=== PATIENT | male | born 1990 | race African-American/Black ===

== ENCOUNTER 2022-10-26 17:40 | Emergency (ER) | payer OTHER ==
[~2022-10-26] VITALS: Ht 175.3 cm; Wt 102.1 kg
[2022-10-26 18:00] VITALS: BP_SYST 155; PULSE 95; RESP 20; TEMP 98.3; O2SAT 97
--- NOTE | 2022-10-26 19:10 | NUR ---
Pt brought by self, A&Ox4, pt presents to ER with pain/swelling on R knee, denies trauma, skin pink and warm, cap refill <3.
--- NOTE | 2022-10-26 19:15 | NUR ---
Report given to Doris GIBBONS
--- NOTE | 2022-10-26 19:30 | NUR ---
ER at bedside examining patient.
[2022-10-26 20:27] LABS: BASOPHILS # (AUTO) 0.1 K/uL (0.0-0.2); BASOPHILS % (AUTO) 0.6 % (0.0-2.0); EOSINOPHILS # (AUTO) 0.1 K/uL (0.0-0.4); EOSINOPHILS % (AUTO) 1.2 % (0.0-4.0); HEMATOCRIT 38.1 % (36-54); HEMOGLOBIN 12.4 g/dL (14.0-18.0); LYMPHOCYTES # (AUTO) 1.3 K/uL (1.0-5.5); LYMPHOCYTES % (AUTO) 11.9 % (20.5-51.5); MEAN CORPUSCULAR HEMOGLOBIN 27 pg (27-31); MEAN CORPUSCULAR HGB CONC 32 % (32-36); MEAN CORPUSCULAR VOLUME 84 fL (79.0-98.0); MONOCYTES # (AUTO) 1.3 K/uL (0.0-1.0); MONOCYTES % (AUTO) 12.5 % (1.7-9.3); NEUTROPHILS # (AUTO) 7.8 K/uL (1.8-7.7); NEUTROPHILS % (AUTO) 73.8 % (40.0-70.0); PLATELET COUNT (AUTO) 370 K/uL (130-430); RED BLOOD CELL COUNT(AUTO) 4.55 MIL/uL (4.2-6.2); RED CELL DISTRIBUTION WIDTH 13.6 % (9.0-15.0); WHITE BLOOD COUNT (AUTO) 10.6 K/uL (4.8-10.8)
[2022-10-26 20:39] LABS: ERYTHROCYTE SEDIMENTATION RATE 83 MM/HR (0-15)
[2022-10-26 20:41] LABS: ALBUMIN 3.5 g/dL (3.4-4.8); CALCIUM 9.3 mg/dL (8.4-11.0); CREATININE 1.14 mg/dL (0.55-1.30); TOTAL BILIRUBIN 1.3 mg/dL (0.0-1.0)
[2022-10-26] MEDS ORDERED: KETOROLAC TROMETHAMINE 30 MG VIAL IM ONE (22:00)
[2022-10-26] MEDS ORDERED: LIDOCAINE 1% 10 MG/ML, 20 ML MDV INJ ONE (22:30)
[2022-10-26] MEDS ORDERED: IBUP-1970 PO ×2 (23:05→23:15)
[2022-10-26] MEDS ORDERED: CEPH-548 PO ×2 (23:05→23:15)
--- NOTE | 2022-10-26 23:20 | NUR ---
Patient given written and verbal discharge instructions and verbalizes understanding. ER MD discussed with patient the results and treatment provided. Patient in stable condition. ID arm band removed. Rx of CEPHALEXIN IBUPROFEN given. Patient educated on pain management and to follow up with PMD. Opportunity for questions provided and answered. Medication side effect fact sheet provided.
[2022-10-26 23:29] VITALS: BP_SYST 155; PULSE 95; RESP 20; TEMP 98.3; O2SAT 97
== END 2022-10-26 23:29 | disposition home or self-care (01) ==
LOC: SED 17:40
DX: R22.41 Localized swelling, mass and lump, right lower limb (principal); M25.561 Pain in right knee; Z79.899 Other long term (current) drug therapy
CPT/HCPCS: 99285; 20611; 93971; 80053; 85025; 85651; 36415; 73564; 96372; J1885